=== PATIENT | female | born 1950 | race Hispanic/Latino ===

== ENCOUNTER → 2017-06-02 | Outpatient (CLI) | payer OTHER ==
[~2017-06-02] MED LIST: AMIO200T2 PO; AMLO5TAB2 PO; ASPI-1197 PO; CLOP75TA32 PO; FURO40TA5 PO; METO-409 PO; RANO500T2 PO; SIMV10TA6 PO; SPIR25TA4 PO
== END | disposition home or self-care (01) ==
LOC: SHCH 12:42
PROVIDERS: ATTEND Internal Medicine Cardiovascular Disease
DX: I25.10 Atherosclerotic heart disease of native coronary artery without angina pectoris (principal); I10 Essential (primary) hypertension
CPT/HCPCS: 93306

== ENCOUNTER → 2017-07-28 | Outpatient (CLI) | payer OTHER ==
[~2017-07-28] MED LIST changes: -AMIO200T2 PO; +AMIO200T5 PO; -SPIR25TA4 PO; +SPIR25TA6 PO
== END | disposition home or self-care (01) ==
LOC: RAH 07:44
PROVIDERS: ATTEND Internal Medicine
DX: Z12.31 Encounter for screening mammogram for malignant neoplasm of breast (principal)
CPT/HCPCS: 77067

== ENCOUNTER → 2018-03-02 | Outpatient (CLI) | payer OTHER ==
[~2018-03-02] MED LIST changes: -AMLO5TAB2 PO; +AMLO5TAB7 PO
== END | disposition home or self-care (01) ==
LOC: SHCH 10:14
PROVIDERS: ATTEND Internal Medicine Cardiovascular Disease
DX: I65.23 Occlusion and stenosis of bilateral carotid arteries (principal)
CPT/HCPCS: 93880

== ENCOUNTER → 2018-04-29 | Outpatient (CLI) | payer OTHER ==
[~2018-04-29] MED LIST changes: -AMLO5TAB7 PO; +AMLO5TAB9 PO
== END | disposition home or self-care (01) ==
LOC: OIH 14:59
PROVIDERS: ATTEND Internal Medicine
DX: I70.0 Atherosclerosis of aorta (principal); I10 Essential (primary) hypertension
CPT/HCPCS: 71046

== ENCOUNTER → 2019-01-09 | Outpatient (CLI) | payer OTHER | END | disposition home or self-care (01) | LOC: RAH 08:57 | PROVIDERS: ATTEND Internal Medicine | DX: Z12.31 Encounter for screening mammogram for malignant neoplasm of breast (principal) | CPT/HCPCS: 77067 ==

== ENCOUNTER → 2019-04-14 | Outpatient (CLI) | payer OTHER ==
[~2019-04-14] MED LIST changes: -SIMV10TA6 PO; +SIMV10TA97 PO
== END | disposition home or self-care (01) ==
LOC: SHCH 12:36
PROVIDERS: ATTEND Internal Medicine Cardiovascular Disease
DX: I65.23 Occlusion and stenosis of bilateral carotid arteries (principal); I67.2 Cerebral atherosclerosis; I25.119 Atherosclerotic heart disease of native coronary artery with unspecified angina pectoris; I73.9 Peripheral vascular disease, unspecified
CPT/HCPCS: 93880; 93925

== ENCOUNTER → 2019-04-28 | Outpatient (CLI) | payer OTHER ==
[~2019-04-28] VITALS: Ht 157.5 cm; Wt 85.7 kg
[~2019-04-28] MED LIST changes: +REGADENOSON 0.4 MG/5 ML PF SYG IVP SCH
== END | disposition home or self-care (01) ==
LOC: SHCH 08:10
PROVIDERS: ATTEND Internal Medicine Cardiovascular Disease
DX: R06.00 Dyspnea, unspecified (principal); I25.10 Atherosclerotic heart disease of native coronary artery without angina pectoris
CPT/HCPCS: 78452; 93017; 96374; A9500 ×2; J2785

== ENCOUNTER 2019-05-17 06:52 | Observation (INO) | payer OTHER ==
[2019-05-15 08:45] VITALS: BP 140/70
[2019-05-15 08:57] LABS: BASOPHILS % (AUTO) 0.5 % (0.0-5.0); EOSINOPHILS % (AUTO) 2.2 % (0.0-8.0); HEMATOCRIT 43.5 % (36-48); LYMPHOCYTES % (AUTO) 25.7 % (21.0-51.0); MEAN CORPUSCULAR HEMOGLOBIN 27.7 pg (27.0-33.0); MEAN CORPUSCULAR VOLUME 89.3 fL (79-99); MONOCYTES % (AUTO) 9.5 % (3.0-13.0); NEUTROPHILS % (AUTO) 61.6 % (40.0-77.0); PLATELET COUNT (AUTO) 190 K/uL (130-400); RED BLOOD CELL COUNT(AUTO) 4.87 MIL/uL (4.00-5.50); RED CELL DISTRIBUTION WIDTH 16.1 % (11.0-15.5)
[2019-05-15 09:08] LABS: APPEARANCE,URINE Clear (CLEAR); BILIRUBIN,URINE Negative (NEGATIVE); COLOR,URINE Yellow (YELLOW); GLUCOSE, URINE (UA) Negative (NEGATIVE); KETONES,URINE Negative (NEGATIVE); LEUKOCYTE ESTERASE ,URINE Small (NEGATIVE); NITRATE,URINE Negative (NEGATIVE); OCCULT BLOOD,URINE Negative (NEGATIVE); PROTEIN,URINE POS 1+ mg/dL (NEGATIVE)
[2019-05-15 09:14] LABS: CREATININE 1.7 mg/dL (0.5-1.5); POTASSIUM 4.5 mmol/L (3.5-5.1)
[2019-05-15 09:28] LABS: INR 0.99 (0.85-1.15); PARTIAL THROMBOPLASTIN TIME 25.9 SEC (26.3-35.5); PROTHROMBIN TIME 10.4 SEC (9.6-11.6)
[2019-05-15 09:43] LABS: RBC,URINE 0-1 /HPF (0-1)
[2019-05-15 09:44] LABS: BACTERIA,URINE Few /HPF (None Seen); SQUAMOUS EPITHELIAL CELL,UR Few /HPF (0-2)
--- NOTE | 2019-05-16 10:45 | NUR ---
REPORT BUN OF 36, BULKHEAD CARPENTER OF 1.7 AND UA OF WBC 2-5, SMALL AMOUNT OF ULEUKEST, NEW ORDERS TO HYDRATE PATIENT BEFORE PROCEDURE WITH NS AT 150CC/HR, IT INFRASTRUCTURE CONSULTANT AWARE.
[2019-05-17] VITALS (24 sets, daily range): BP systolic 106–155; BP diastolic 31–90
[~2019-05-17] VITALS: Ht 152.4 cm; Wt 84.7 kg
[~2019-05-17 06:52] MED LIST changes: +ALLO100T PO; -AMLO5TAB9 PO; +GLIM1TAB18 PO; +LEVO50TA11 PO; +LISI40TA4 PO; +METO5TAB7 PO; +OMEP40CA13 PO; -RANO500T2 PO; +RANO500T5 PO; -REGADENOSON 0.4 MG/5 ML PF SYG IVP SCH; +SODIUM CHLORIDE 0.9% 500ML 500 ML IV SCH; -SPIR25TA6 PO
[2019-05-17] MEDS: SODIUM CHLORIDE 0.9% 1000ML 1,000 ML IV SCH ×4 (07:13→19:20)
--- NOTE | 2019-05-17 14:35 | NUR ---
PROCEDURE PT TAKEN TO PROCEDURE VIA BED, NO DISTRESS NOTED. PT DENIED ANY PAIN OR DISCOMFORTS. FAMILY AT BEDSIDE
[2019-05-17] MEDS ORDERED: SODIUM BICARB 50MEQ 50ML VIAL ONE (14:43)
[2019-05-17] MEDS ORDERED: HEPARIN SODIUM 1000UNIT/ML 10ML VIAL ONE (14:44)
[2019-05-17] MEDS ORDERED: IOHEXOL-350 50ML VIAL IV ONE (14:45)
[2019-05-17] MEDS ORDERED: LIDOCAINE HCL 2% 20ML ONE (14:45)
[2019-05-17] MEDS ORDERED: IOHEXOL 350 MG/ML 100ML INFUS..BTL IV ONE (14:45)
[2019-05-17] MEDS ORDERED: NITROGLYCERIN 1 MG/VIAL VIAL IV ONE (14:47)
[2019-05-17] MEDS ORDERED: MEPERIDINE-PF 25 MG/ML SYG ONE ×2 (15:03→15:10)
[2019-05-17] MEDS ORDERED: MIDAZOLAM HCL 1 MG/ML 2ML VIAL ONE ×2 (15:03→15:10)
[2019-05-17] MEDS ORDERED: DEXTROSE 50%-WATER 50 ML DISP.SYRIN IV PRN (16:15)
[2019-05-17] MEDS ORDERED: ONDANSETRON HCL 4 MG/2 ML VIAL IVP PRN (16:15)
[2019-05-17] MEDS: INSULIN HUMULIN R 100 UNIT/ML 3ML SQ SCH ×2 (16:30→21:00)
--- NOTE | 2019-05-17 16:30 | NUR ---
POST RECEIVED PT FROM CAMPUS ADMINISTRATOR, S/P [facility] WITH STENT TO RAMUS , RIGHT GROIN WITH PERCLOSE CLOSURE DEVICE. NO BLEEDING OR HEMATOMA TO SITE. VS STABLE ON ARRIVAL. PT INSTRUCTED TO KEEP BEDREST AND TO CALL NURSE FOR ANY CHEST PAIN, SOB OR ANY OTHER CONCERN. SPOUSE AT BEDSIDE. DR. PRINCE ALSO INFORMED OF PATIENTS ADMISSION, PT PENDING TELEMETRY BED
--- NOTE | 2019-05-17 17:30 | NUR ---
REPORT REPORT GIVEN TO CRISTIAN LEYVA .PATIENT BEING TRANSFERRED TO ROOM 218.
[2019-05-17] MEDS ORDERED: SIMVASTATIN 10 MG TABLET PO SCH (21:00)
[2019-05-17] MEDS ORDERED: LISINOPRIL 40 MG TABLET PO SCH (21:00)
[2019-05-18] MEDS: SODIUM CHLORIDE 0.9% 1000ML 1,000 ML IV SCH ×3 (02:00→08:40)
[2019-05-18 03:42] VITALS: BP 138/51
[2019-05-18 04:28] LABS: HEMATOCRIT 38.6 % (36-48); MEAN CORPUSCULAR HEMOGLOBIN 28.5 pg (27.0-33.0); MEAN CORPUSCULAR HGB CONC 32.4 g/dL (32.0-36.0); MEAN CORPUSCULAR VOLUME 88.1 fL (79-99); PLATELET COUNT (AUTO) 168 K/uL (130-400); RED BLOOD CELL COUNT(AUTO) 4.38 MIL/uL (4.00-5.50); RED CELL DISTRIBUTION WIDTH 16.1 % (11.0-15.5); WHITE BLOOD COUNT (AUTO) 5.7 K/uL (4.8-10.8)
[2019-05-18 04:58] LABS: CREATININE 1.7 mg/dL (0.5-1.5)
[2019-05-18] MEDS: INSULIN HUMULIN R 100 UNIT/ML 3ML SQ SCH ×2 (05:50→11:30)
[2019-05-18] MEDS ORDERED: LEVOTHYROXINE 50 MCG TABLET PO SCH (06:30)
[2019-05-18 07:49] VITALS: BP 125/46
[2019-05-18] MEDS ORDERED: FUROSEMIDE 40 MG TABLET PO SCH (09:00)
[2019-05-18] MEDS ORDERED: METOLAZONE 2.5 MG TABLET PO SCH (09:00)
[2019-05-18] MEDS ORDERED: PANTOPRAZOLE SODIUM 40 MG TABLET.DR PO SCH (09:00)
[2019-05-18] MEDS ORDERED: METOPROLOL SUCCINATE 50 MG TAB.SR.24H PO SCH (09:00)
[2019-05-18] MEDS ORDERED: GLIMEPIRIDE 2 MG TABLET PO SCH (09:00)
[2019-05-18] MEDS ORDERED: ASPIRIN 81MG TAB.CHEW PO SCH (09:00)
[2019-05-18] MEDS ORDERED: AMIODARONE HCL 200 MG TABLET PO SCH (09:00)
[2019-05-18] MEDS ORDERED: CLOPIDOGREL BISULFATE 75 MG TAB PO SCH (09:00)
[2019-05-18] MEDS ORDERED: RANOLAZINE 500 MG TAB.SR.12H PO SCH (09:00)
[2019-05-18 11:16] VITALS: BP 139/56
[2019-05-18] MEDS ORDERED: ALLOPURINOL 100 MG TABLET PO SCH (12:00)
--- NOTE | 2019-05-18 16:06 | NUR ---
1059 Had pt sign CELIS Letter,faxed to [id number] and placed in chart under consent tab
== END 2019-05-18 12:06 | disposition home or self-care (01) ==
LOC: DAH 06:52 → DAHIP 06:53 → DAH 06:53 → 2CH 17:48
PROVIDERS: ADMIT Internal Medicine; ATTEND Internal Medicine
DX: I25.119 Atherosclerotic heart disease of native coronary artery with unspecified angina pectoris (principal); I24.9 Acute ischemic heart disease, unspecified; I25.5 Ischemic cardiomyopathy; E11.22 Type 2 diabetes mellitus with diabetic chronic kidney disease; I12.9 Hypertensive chronic kidney disease with stage 1 through stage 4 chronic kidney disease, or unspecified chronic kidney disease; N18.3 Chronic kidney disease, stage 3 (moderate); Z95.810 Presence of automatic (implantable) cardiac defibrillator; Z79.02 Long term (current) use of antithrombotics/antiplatelets; Z79.899 Other long term (current) drug therapy
CPT/HCPCS: 36415 ×2; 71045; 80048 ×2; 80061; 81001; 82948 ×4; 85025; 85027; 85610; 85730; 93005; 93458; A4215; A4221; A4223; A4606; C1760; C1769 ×2; C1874; C1887 ×3; C1894 ×2; C9600; G0378 ×20; J1644 ×2; J2175 ×2; J2250 ×2; J3490 ×3; J7030; Q9965; Q9967; 96360; 96361; 99156; 99157

== ENCOUNTER → 2019-05-22 | Outpatient (CLI) | payer OTHER ==
[~2019-05-22] MED LIST changes: -OMEP40CA13 PO; -SODIUM CHLORIDE 0.9% 500ML 500 ML IV SCH
== END | disposition home or self-care (01) ==
LOC: OIH 09:11
PROVIDERS: ATTEND Internal Medicine
DX: I10 Essential (primary) hypertension (principal); I70.0 Atherosclerosis of aorta; Z95.0 Presence of cardiac pacemaker
CPT/HCPCS: 71045

== ENCOUNTER → 2019-08-10 | Outpatient (CLI) | payer OTHER | END | disposition home or self-care (01) | LOC: OIH 12:47 | PROVIDERS: ATTEND Internal Medicine | DX: M16.11 Unilateral primary osteoarthritis, right hip (principal); M54.5 Low back pain; I70.0 Atherosclerosis of aorta | CPT/HCPCS: 72100; 73502 ==